=== PATIENT | female | born 1995 | race Caucasian/White ===

== ENCOUNTER 2020-04-04 02:03 | Inpatient (IN) | payer SELFPAY, OTHER ==
[2020-04-04] VITALS (49 sets, daily range): BP systolic 84–121; BP diastolic 41–72; PULSE 73–141; RESP 12–18; TEMP 36.3–37.5; O2SAT 88–99; BMI 26.9
[2020-04-04] MEDS: Lactated Ringers 1,000 ML 999 ML IV (02:45)
[2020-04-04 03:16] LABS: Mucous, Urine 0 SEEN /hpf (<or=2+)
[2020-04-04 03:17] LABS: Absolute Lymphocyte Count 1.62 X10^3/uL (0.83-4.51); Absolute Neutrophil Count 16.8 X10^3/uL (2.0-7.7); Basophil# 0.09 X10^3/uL; Basophil% 0.5 % (0-1); Eosinophil# 0.01 X10^3/uL; Eosinophils% 0.1 % (0-5); Hematocrit 37.4 % (37-47); Hemoglobin 12.3 g/dL (12.0-15.0); Lymphocyte # 1.62 X10^3/ul (4.0); Lymphocyte % 8.2 % (19-41); Mean Corp Hgb Conc 32.9 g/dL (32-36); Mean Corpuscular Hgb 30.4 pg (27.0-32.0); Mean Corpuscular Volume 92.6 fL (81-99); Mean Platelet Vol. 10.6 fl (6.2-12.0); Monocyte# 1.16 X10^3/uL; Monocyte% 5.8 % (0-10); NRBC Flagged by Analyzer 0 % (0-5); Neutrophil # 16.77 X10^3/uL (2.7-7.7); Neutrophil % 84.3 % (47-70); Platelet Count 283 K/mm3 (150-450); RBC Distribution Width CV 13.3 % (11.6-14.6); RBC Distribution Width SD 45.1 fl (35.1-43.9); Red Blood Count 4.04 M/mm3 (4.2-5.4); White Blood Count 19.9 K/mm3 (4.4-11.0)
[2020-04-04 03:19] LABS: Color, Urine Yellow (Yellow); Glucose, Dipstick Normal (Normal); Ketone-Dipstick 50 mg/dl (Negative); Leukocyte Esterase-Dipstick 500 /ul (Negative); Nitrite-Dipstick Negative (Negative); Occult Blood-Urine 25 /ul (Negative); Protein-Dipstick Negative (Negative); Urine Bilirubin Dipstick Negative (Negative); Urine Clarity Clear (Clear); Urine Urobilinogen Normal (Normal); Urine pH 6.5 (5.0 - 8.0)
[2020-04-04 03:26] LABS: Bacteria RARE /hpf (None Seen); Red Blood Cells-Urine 0-5 SEEN /hpf (0-5); Squamous Epithelial Cells - UA 0-5 SEEN /hpf (5-10); White Blood Cells 5-10 SEEN /hpf (0-5)
[2020-04-04 03:29] LABS: Amphetamine Urine VISTA NEGATIVE (<1000 ng/mL); Barbiturate Urine VISTA NEGATIVE (< 200 ng/mL); Benzodiazepine Urine VISTA NEGATIVE (< 200 ng/mL); Cocaine Urine VISTA NEGATIVE (< 300 ng/mL); Ecstacy Urine VISTA NEGATIVE (< 500 ng/mL); Methadone Urine VISTA NEGATIVE (< 300 ng/mL); PCP Urine VISTA NEGATIVE (< 25 ng/mL); THC Urine VISTA NEGATIVE (< 50 ng/mL); Vista UDS pH Range 6
[2020-04-04] MEDS: fentaNYL-bupivacaine (epidural) 100 ML BAG EPIDURAL (04:30)
[2020-04-04] MEDS: Lactated Ringers 500 ML 999 ML IV ×2 (04:40→06:36)
[2020-04-04 04:59] LABS: Chlamydia Trachomatis by PCR Negative (Negative); Neisserai gonorrhoeae by PCR Negative (Negative); Probe Check PASS; Sample Adequacy Control PASS; Specimen Processing Control PASS
[2020-04-04 05:18] LABS: Probe Check PASS; Specimen Processing Control PASS
[2020-04-04] MEDS: Lactated Ringers 1,000 ML 200 ML IV (07:05)
--- NOTE | 2020-04-04 08:26 | HP.PCM_ITS ---
- Problem List (1) Previous delivery affecting Status: Acute (2) Active labor Status: Acute History Date of Admission: 04/04/20 Final ALEAH: 03/29/20 Gestational age: 40 Weeks and 6 Days History of this : This is a 25 year-old, G 2P1, at 40 weeks gestational age presents in active labor for a trial of labor after . Patient was seen by [facility] [place] providers and had a routine and an attempted induction of labor 1 week ago that the patient had a Corado bulb and Pitocin and stalled at 3 cm and therefore was sent home. Patient sought care by [facility] Malia Esposito and has been in labor since Saturday afternoon and is now 4 to 5 cm but stalled out. Patient presents for a trial of labor today to this hospital.. Medical History: Medical History (Last Updated 04/04/20 @ 08:[address] Becyk Roberson MD) delivery delivered O82 Allergies No Known Allergies Allergy (Verified 04/04/20 03:11) Smoking Status: Never smoker Alcohol: None Number of Fetus(es): 1 NST - FHR Rate Baby A Baseline: 140 Variability:: Moderate Accelerations:: 15 x 15 Decelerations:: None NST Reactive:: Yes FHR Category:: Category I Uterine Activity:: irregular History Past Pregnancies: Past Pregnancies pevious stalled at 3 cm for 48 hours Labs: Mom's Microbiology 04/04/20 02:45 Mucosa - Nose SARS-CoV-2 Antigen (Rapid) - Final SARS-CoV-2 (COVID 19) Mom's Labs & Results 04/04/20 04/04/20 04/04/20 02:45 02:45 02:45 WBC 19.9 H RBC 4.04 L Hgb 12.3 Hct 37.4 MCV 92.6 MCH 30.4 MCHC 32.9 RDW Std Deviation 45.1 H RDW Coeff of Kelle 13.3 Plt Count 283 MPV 10.6 Immature Gran % (Auto) 1.100 H Neut % (Auto) 84.3 H Lymph % (Auto) 8.[address] [place] % (Auto) 5.8 Eos % (Auto) 0.1 Baso % (Auto) 0.5 Absolute Neuts (auto) 16.8 H Absolute Lymphs (auto) 1.62 Nucleated RBC % 0 Urine Color Urine Clarity Urine pH Ur Specific [place] Urine Protein Urine Glucose (UA) Urine Ketones Urine Occult Blood Urine Nitrite Urine Bilirubin Urine Urobilinogen Ur Leukocyte Esterase Urine RBC Urine WBC Ur Squamous Epith Cells Urine Bacteria Urine Mucus Urine Opiates Screen Urine Methadone Screen Ur Barbiturates Screen Ur Phencyclidine Scrn Ur Amphetamines Screen U Methamphetamin-MDMA U Benzodiazepines Scrn Urine Cocaine Screen U Cannabinoids Screen Ur Drug Screen Comment RPR Chlam trachomat DNA PCR COVID-19 (JEREMIAH) Hep Bs Antigen Hepatitis C Antibody HIV 1&2 Antibody N.gonorrhoeae DNA (PCR) Rubella IgG Antibody Pending Blood Type O POSITIVE Antibody Screen NEGATIVE 04/04/20 04/04/20 04/04/20 02:45 02:45 03:00 WBC RBC Hgb Hct MCV MCH MCHC RDW Std Deviation RDW Coeff of Kelle Plt Count MPV Immature Gran % (Auto) Neut % (Auto) Lymph % (Auto) [place] % (Auto) Eos % (Auto) Baso % (Auto) Absolute Neuts (auto) Absolute Lymphs (auto) Nucleated RBC % Urine Color Yellow Urine Clarity Clear Urine pH 6.5 Ur Specific [place] 1.010 Urine Protein Negative Urine Glucose (UA) Normal Urine Ketones 50 H Urine Occult Blood 25 H Urine Nitrite Negative Urine Bilirubin Negative Urine Urobilinogen Normal Ur Leukocyte Esterase 500 H Urine RBC 0-5 SEEN Urine WBC 5-10 SEEN Ur Squamous Epith Cells 0-5 SEEN Urine Bacteria RARE Urine Mucus 0 SEEN Urine Opiates Screen Urine Methadone Screen Ur Barbiturates Screen Ur Phencyclidine Scrn Ur Amphetamines Screen U Methamphetamin-MDMA U Benzodiazepines Scrn Urine Cocaine Screen U Cannabinoids Screen Ur Drug Screen Comment RPR Pending Chlam trachomat DNA PCR COVID-19 (JEREMIAH) Hep Bs Antigen Pending Hepatitis C Antibody Pending HIV 1&2 Antibody Pending N.gonorrhoeae DNA (PCR) Rubella IgG Antibody Blood Type Antibody Screen 04/04/20 04/04/20 04/04/20 03:00 03:00 04:15 WBC RBC Hgb Hct MCV MCH MCHC RDW Std Deviation RDW Coeff of Kelle Plt Count MPV Immature Gran % (Auto) Neut % (Auto) Lymph % (Auto) [place] % (Auto) Eos % (Auto) Baso % (Auto) Absolute Neuts (auto) Absolute Lymphs (auto) Nucleated RBC % Urine Color Urine Clarity Urine pH Ur Specific [place] Urine Protein Urine Glucose (UA) Urine Ketones Urine Occult Blood Urine Nitrite Urine Bilirubin Urine Urobilinogen Ur Leukocyte Esterase Urine RBC Urine WBC Ur Squamous Epith Cells Urine Bacteria Urine Mucus Urine Opiates Screen NEGATIVE Urine Methadone Screen NEGATIVE Ur Barbiturates Screen NEGATIVE Ur Phencyclidine Scrn NEGATIVE Ur Amphetamines Screen NEGATIVE U Methamphetamin-MDMA NEGATIVE U Benzodiazepines Scrn NEGATIVE Urine Cocaine Screen NEGATIVE U Cannabinoids Screen NEGATIVE Ur Drug Screen Comment RPR Chlam trachomat DNA PCR Negative COVID-19 (JEREMIAH) Negative Hep Bs Antigen Hepatitis C Antibody HIV 1&2 Antibody N.gonorrhoeae DNA (PCR) Negative Rubella IgG Antibody Blood Type Antibody Screen Course Did the patient receive Yes care? Labs Blood Type: O RH: POSITIVE HbSAg Collected on Admission HIV/AIDS Non-Reactive Group B Strep: Negative Other Lab Procedures/Results/ all lab work collected on admission Comments: Current Obstetrical History Gestational Diabetes No Incompetent Cervix No Infertility No IUGR No Macrosomia No Hypertension/Pre-eclampsia No Placenta Previa/Abruption No PTL/PROM No Uterine anomaly No Oligohydramnios No Polyhydramnios No Multiple gestation No Past Medical History Asthma No Diabetes No Hypertension No Heart disease No Mitral valve prolapse No Neurologic/Seizure disorder/ No Migraines Kidney disease No Liver disease No Varicosities No Clotting disorders/Hx of DVT No Thyroid Dysfunction No Other medical diseases No Psychiatric disorders No Major trauma No Abnormal PAP smear No Sleep apnea No Mammogram in the last 2 years No Social History Marital Status: Alleged father Harshad Hx Smoking No Smoking Status Never smoker Expected Infant Delivery Method: Review of Systems Constitutional: Denies: Fever, Malaise Eyes: Denies: Blurred vision, Vision Change HEENT: Denies: Head Aches, Visual Changes Cardiovascular: Denies: Chest Pain, Palpitations Respiratory: Denies: Cough, Shortness of Breath, Wheezing Gastrointestinal: Denies: Abdominal Pain, Diarrhea, Nausea, Vomiting Genitourinary: Denies: Dysuria, Hematuria Musculoskeletal: Denies: Joint Pain, Muscle pain Skin: Denies: Lesions, Rash Neurological: Denies: Blurred vision, Focal weakness, Headaches Psychiatric: Denies: Anxiety, Depression Endocrine: Denies: Heat/ Cold Intolerance Hematologic/ Lymphatic: Denies: Easy Bruising, Easy Bleeding Physical Exam Vitals: Vital Signs Temp Pulse BP Pulse Ox 97.9 F 95 108/57 L 99 04/04/20 06:52 04/04/20 08:23 04/04/20 08:23 04/04/20 07:19 General: Alert, Cooperative, No apparent distress HEENT: Atraumatic, Normocephalic. Negative for: Thyromegaly, Lymphadenopathy Cardiovascular: Regular rate Lungs: Normal air movement Abdomen: Soft, Non Tender, Gravid Neurological: Deep Tendon Reflexes 2+/4 and Symmetrical, Neuro grossly intact. Negative for: Clonus ART INSTALLER: Normal external genitalia. Negative for: Vulvar lesions Estimated gestational size: Appropriate for gestational size Presentation: Cephalic Assessment/Plan All Active Problems Previous delivery affecting (Acute) Active labor (Acute) This is a 25 year-old, at 40 weeks gestational age presents IAL TOLAC. discussed pitocin and AROM augmentation. will get epidural first.
--- NOTE | 2020-04-04 08:30 | OP.PCM_ITS ---
Problem List (1) Previous delivery affecting Status: Acute (2) Active labor Status: Acute Delivery Classification: KELLIE Final ALEAH: 03/29/20 Gestational age: 40 Weeks and 6 Days chicken raiser: Shital Gorman Type of Anesthesia:: Epidural Special Medications: none Implants Used: none Date of Procedure: 04/04/20 Pre-Operative Diagnosis: tolac, NRFHTS recurrent late decelerations Post-Operative Diagnosis: same plus uterine rupture with window Indications for : Nonreassuring Status Description of Procedure: 25-year-old presented at 40 and 6 after laboring at home with a cast iron drain pipe layer for a day and a half and proceeded to 4-5 cm of dilation. After position changes and after the patient got an epidural she developed recurrent late decelerations that were still intermittent and would not resolve with position changes therefore the decision to proceed with a repeat low transverse was made. The patient was placed in the dorsal supine position with leftward tilt. Patient was prepped and draped in the normal sterile fashion. Pfannenstiel skin incision was made with the scalpel and carried through to the underlying layer of fascia with the scalpel. Fascia was nicked in the midline and the incision extended laterally. The rectus bellies were dissected off superiorly and inferiorly with out complication both sharply and bluntly. The peritoneum was entered digitally. a uterine rupture was seen approximately 2x3 cm in the left VANNESA with peritoneum overlying the area. The incision was s tretched and a low transverse uterine incision was made with the scalpel. The 's head was delivered atraumatically followed by the anterior and posterior shoulders without complication the rest of the delivered. The cord was clamped and cut and the infant was handed off to awaiting nurse. The placenta was delivered spontaneously immediately following and was noted to be intact and have a three-vessel cord. The uterus was exteriorized cleared of all clots and debris, and the incision was closed in a double layer closure using #1 Monocryl. The ovaries and fallopian tubes were noted to be within normal limits. The uterus was returned to the maternal abdomen and gutters were cleared of all clots and debris. The peritoneum was closed with 3-0 Monocryl in a running fashion. Gloves were changed prior to fascial closure. Fascia was closed with 0 PDS in a running fashion. Subcutaneous tissue was copiously irrigated and the skin was closed with 3-0 Monocryl in a subcuticular fashion. Mepilex dressing was applied without complication. Patient was taken to recovery in stable condition. It was discussed with the patient that based on the clinical information obtained during this encounter, combined with her history, at this time I would recommend only cesareans for future deliveries if further pregnancies are desired, and she needs delivered early at 36-37 weeks. Amniotic Membrane Rupture Type: Artificial Amniotic Fluid Description: Clear Placenta Disposition: [facility] Specimen(s) sent to pathology: placenta Drain: Corado to straight drain Fluids Replaced: crystalloid Antibiotic Given: Ancef 2 grams IV x1, Zithromax 500 mg/5 mL X1 Pt instructed on risks of surgery: Bleeding, Anesthesia Risks, Infection, Injury to surrounding structure(s) including bowel and bladder Complications: None - Admit VTE Documentation VTE Present on Admission: No VTE Mechan Device Prophylaxis: SCD's Multi Select Codes - Urinary/Genital Urinary/Genital CPT Codes: 87457 delivery+PP Care([facility])
[2020-04-04] MEDS: Sodium Citrate/Citric Acid 30 ML UDC PO (08:45)
[2020-04-04] MEDS: Cefazolin 2 GM in 0.9% Normal Saline 100 ML IV (08:50)
[2020-04-04 09:41] LABS: Rubella IgG Reactive (Nonreactive)
[2020-04-04] MEDS: Oxytocin 30 units/NS 500 ml 30 UNITS/500 ML IV.SOLN 167 UNITS IV (09:50)
[2020-04-04] MEDS: Lactated Ringers 1,000 ML 100 ML IV (13:14)
[2020-04-04] MEDS: Acetaminophen 500 MG Tablet 1000 MG PO ×2 (14:03→20:39)
[2020-04-04 14:46] LABS: HIV - WCH Non-Reactive (Nonreactive); Hepatitis B Surface Antigen Non-Reactive (Nonreactive); Hepatitis C Antibody Non-Reactive (Nonreactive)
[2020-04-04] MEDS: Ketorolac 30 MG/ML Syringe IV ×2 (15:20→20:39)
[2020-04-04] MEDS: 0.9% Saline Lock 10 ML Syringe IV (20:39)
[2020-04-05] VITALS: BP 89/43; PULSE 65; RESP 15; TEMP 36.3; O2SAT 96
--- NOTE | 2020-04-05 00:11 | NURSING ---
0000- BP low, pt. denies any headache, dizziness, lightheadedness, or other symptoms. BPs throughout the day have been on the lower side. Encouraged to drink PO fluids. This RN will continue to monitor and informed pt. to have RN in room when ambulating. 0010- Pt. out of bed and up to restroom with nurse standby to attempt to void. Tolerated walking well, denies any dizziness or lightheadedness. Almaz-care performed and almaz-pad changed.
[2020-04-05] MEDS: Acetaminophen 500 MG Tablet 1000 MG PO ×4 (01:55→20:42)
[2020-04-05] MEDS: 0.9% Saline Lock 10 ML Syringe IV ×2 (02:57→08:57)
[2020-04-05] MEDS: Ketorolac 30 MG/ML Syringe IV (02:57)
--- NOTE | 2020-04-05 03:26 | NURSING ---
Pt. up to restroom. Reports being able to void a little bit. This RN allowing pt. to sit in restroom for a little while longer to see if she is able to empty her bladder anymore.
[2020-04-05 03:36] VITALS: BP 100/49; PULSE 79; RESP 16; TEMP 36.5; O2SAT 97
[2020-04-05 03:58] LABS: Hematocrit 35.4 % (37-47); Hemoglobin 11.4 g/dL (12.0-15.0); Mean Corp Hgb Conc 32.2 g/dL (32-36); Mean Corpuscular Hgb 30.6 pg (27.0-32.0); Mean Corpuscular Volume 94.9 fL (81-99); Mean Platelet Vol. 10.3 fl (6.2-12.0); Platelet Count 279 K/mm3 (150-450); RBC Distribution Width CV 13.5 % (11.6-14.6); RBC Distribution Width SD 46.9 fl (35.1-43.9); Red Blood Count 3.73 M/mm3 (4.2-5.4); White Blood Count 22.5 K/mm3 (4.4-11.0)
--- NOTE | 2020-04-05 05:06 | NURSING ---
Pt. reports feeling like she needs to void. This RN assisted pt. up to restroom.
--- NOTE | 2020-04-05 07:53 | PCM.PN.OB ---
Patient Problems: Active and Suspected Problems (Last Updated 04/04/20 @ 08:[address] Becky Roberson MD) Previous delivery affecting (Acute) Active labor (Acute) Subjective: Patient doing well without complaints. Tolerating PO. Ambulating and voiding without difficulty. Breast feeding well. Denies chest pain, shortness of breath, calf pain/swelling, fevers, chills, lightheadedness. - Physical Exam Vitals/I&O's: Vital Signs Temp Pulse Resp BP Pulse Ox 97.7 F L 79 16 100/49 L 97 04/05/20 03:36 04/05/20 03:36 04/05/20 03:36 04/05/20 03:36 04/05/20 03:36 Oxygen Flow Rate (L/min) 2 Oxygen Delivery Method Room Air Weight: 152 lb Body Mass Index (BMI) 26.9 Intake and Output for Last 24 Hours 04/03/20 04/04/20 04/05/20 23:59 23:59 23:59 Intake Total 3966.67 / 3966.67 Output Total 350 / 350 500 / 500 Balance 3616.67 / 3616.67 -500 / -500 General: Alert, Oriented x3 Abdomen: Soft, Non-Distended, - - Dressing dry and intact. FF below U. Appropriately tender Microbiology Past 72 Hours 04/04/20 02:45 Mucosa - Nose SARS-CoV-2 Antigen (Rapid) - Final SARS-CoV-2 (COVID 19) Laboratory Results 04/04/20 02:45: Rubella IgG Antibody Reactive 04/04/20 02:45: Hep Bs Antigen Non-Reactive, Hepatitis C Antibody Non-Reactive, HIV 1&2 Antibody Non-Reactive 04/05/20 03:50: WBC 22.5 H, RBC 3.73 L, Hgb 11.4 L, Hct 35.4 L, MCV 94.9, MCH 30.6, MCHC 32.2, RDW Std Deviation 46.9 H, RDW Coeff of Kelle 13.5, Plt Count 279, MPV 10.3 Current Medications Acetaminophen (Acetaminophen 500 Mg Tablet) 1,000 mg PO Q6@0200,0800,1400,2000 NORIS Last Admin: 04/05/20 01:55 Dose: 1,000 mg Documented by: Bisacodyl (Bisacodyl 10 Mg Suppository) 10 mg RECTAL UD PRN PRN Reason: If no BM Diphenhydramine HCl (Diphenhydramine 25 Mg Capsule) 25 mg PO Q6H PRN PRN PRN Reason: ITCHING Stop: 04/05/20 08:41 Hydrocortisone (Hydrocortisone 2.5% Crm) 1 applic TOPICAL TID PRN PRN; Protocol PRN Reason: Discomfort Lactated Ringer's () 1,000 mls @ 100 mls/hr IV .Q10H [facility] Last Admin: 04/05/20 05:11 Dose: Not Given Documented by: Ketorolac Tromethamine (Ketorolac 30 Mg/Ml Syringe) 30 mg IV Q6H [facility] Stop: 04/05/20 09:01 Last Admin: 04/05/20 02:57 Dose: 30 mg Documented by: Methylergonovine Maleate (Methylergonovine 0.2 Mg/Ml Ampul) 0.2 mg IM X1 PRN PRN Reason: Uterine Atony Naloxone HCl (Naloxone 0.4 Mg/Ml Syringe) 0.02 mg IV Q1M PRN PRN Reason: RR <10 and pt unresponsive Naproxen (Naproxen 250 Mg Tablet) 500 mg PO Q8 [facility] Last Admin: 04/05/20 05:11 Dose: Not Given Documented by: Ondansetron HCl (Ondansetron 4 Mg/2 Ml Vial) 4 mg IV Q4H PRN PRN PRN Reason: Nausea Oxycodone HCl (Oxycodone 5 Mg Tablet) 5 - 10 mg PO Q4H PRN PRN PRN Reason: Pain Score 4-10 Prochlorperazine Edisylate (Prochlorperazine 10 Mg/2 Ml Vial) 10 mg IV Q6H PRN PRN PRN Reason: NAUSEA Senna/Docusate Sodium (Senna/Docusate Sodium 1 Tablet) 0 tablet PO DAILY [facility] Last Admin: 04/04/20 11:20 Dose: Not Given Documented by: Simethicone (Simethicone 80 Mg Tablet) 80 mg PO [facility] PRN PRN Reason: Indigestion/stomach pain Sodium Chloride (0.9% Saline Lock 10 Ml Syringe) 5 - 15 ml IV UD PRN PRN Reason: SALINE FLUSH Last Admin: 04/05/20 02:57 Dose: 10 ml Documented by: Medical Necessity - Tobacco Use Smoking Status: Never smoker Assessment/Plan All Active Problems (Last Updated 04/04/20 @ 08:[address] Becky Roberson MD) Previous delivery affecting (Acute) Active labor (Acute) s/p LTCS PPD # 1 1. routine post care 2. breast feeding- support given 3. rh positive 4. rubella immune
[2020-04-05 08:46] VITALS: BP 99/58; PULSE 90; RESP 16; TEMP 36.6; O2SAT 99
[2020-04-05] MEDS: Senna/Docusate Sodium 1 Tablet PO (08:57)
[2020-04-05] MEDS: Naproxen 250 MG Tablet 500 MG PO ×2 (09:19→17:18)
[2020-04-05 13:00] VITALS: BP 100/56; PULSE 85; RESP 16; TEMP 36.5
[2020-04-05 20:35] VITALS: BP 94/52; PULSE 78; RESP 17; TEMP 36.3; O2SAT 97
[2020-04-06] MEDS: Naproxen 250 MG Tablet 500 MG PO ×2 (02:20→09:26)
[2020-04-06] MEDS: Acetaminophen 500 MG Tablet 1000 MG PO ×2 (02:20→09:26)
[2020-04-06 02:21] VITALS: BP 86/51; PULSE 75; RESP 15; TEMP 36.8; O2SAT 97
--- NOTE | 2020-04-06 07:50 | PN.OBGYN_ITS ---
Patient Problems: Active and Suspected Problems (Last Updated 04/04/20 @ 08:[address] Becky Roberson MD) Previous delivery affecting (Acute) Active labor (Acute) Subjective: Patient doing well without complaints. Tolerating PO. Ambulating and voiding without difficulty. Breast feeding well. Denies chest pain, shortness of breath, calf pain/swelling, fevers, chills, lightheadedness. - Physical Exam Vitals/I&O's: Vital Signs Temp Pulse Resp BP Pulse Ox 98.2 F 75 15 86/51 L 97 04/06/20 02:21 04/06/20 02:21 04/06/20 02:21 04/06/20 02:21 04/06/20 02:21 Oxygen Flow Rate (L/min) 2 Oxygen Delivery Method Room Air Weight: 152 lb Body Mass Index (BMI) 26.9 Intake and Output for Last 24 Hours 04/04/20 04/05/20 04/06/20 23:59 23:59 23:59 Intake Total 3966.67 / 3966.67 Output Total 350 / 350 500 / 500 Balance 3616.67 / 3616.67 -500 / -500 General: Alert, Oriented x3 Abdomen: Soft, Non-Distended, - - FF below U. Dressing dry and intact. Appropriately tender Microbiology Past 72 Hours 04/04/20 02:45 Mucosa - Nose SARS-CoV-2 Antigen (Rapid) - Final SARS-CoV-2 (COVID 19) Current Medications Acetaminophen (Acetaminophen 500 Mg Tablet) 1,000 mg PO Q6@0200,0800,1400,2000 [facility] Last Admin: 04/06/20 02:20 Dose: 1,000 mg Documented by: Bisacodyl (Bisacodyl 10 Mg Suppository) 10 mg RECTAL UD PRN PRN Reason: If no BM Hydrocortisone (Hydrocortisone 2.5% Crm) 1 applic TOPICAL TID PRN PRN; Protocol PRN Reason: Discomfort Methylergonovine Maleate (Methylergonovine 0.2 Mg/Ml Ampul) 0.2 mg IM X1 PRN PRN Reason: Uterine Atony Naloxone HCl (Naloxone 0.4 Mg/Ml Syringe) 0.02 mg IV Q1M PRN PRN Reason: RR <10 and pt unresponsive Naproxen (Naproxen 250 Mg Tablet) 500 mg PO Q8H [facility] Last Admin: 04/06/20 02:20 Dose: 500 mg Documented by: Ondansetron HCl (Ondansetron 4 Mg/2 Ml Vial) 4 mg IV Q4H PRN PRN PRN Reason: Nausea Oxycodone HCl (Oxycodone 5 Mg Tablet) 5 - 10 mg PO Q4H PRN PRN PRN Reason: Pain Score 4-10 Prochlorperazine Edisylate (Prochlorperazine 10 Mg/2 Ml Vial) 10 mg IV Q6H PRN PRN PRN Reason: NAUSEA Senna/Docusate Sodium (Senna/Docusate Sodium 1 Tablet) 0 tablet PO DAILY [facility] Last Admin: 04/05/20 08:57 Dose: 1 tablet Documented by: Simethicone (Simethicone 80 Mg Tablet) 80 mg PO [facility] PRN PRN Reason: Indigestion/stomach pain Medical Necessity - Tobacco Use Smoking Status: Never smoker Assessment/Plan All Active Problems (Last Updated 04/04/20 @ 08:[address] Becky Roberson MD) Previous delivery affecting (Acute) Active labor (Acute) s/p LTCS PPD # 2 1. routine post care 2. breast feeding- support given 3. rh positive 4. rubella immune 5. home today
--- NOTE | 2020-04-06 07:52 | DCINST_ITS ---
Additional Instructions: If you experience any of the following, contact your healthcare provider. * Bleeding that soaks a pad every hour for 2 hours * Fever 100.4 or higher * Unrelieved incision or abdominal pain * Swelling, redness, discharge or bleeding from your incision or episiotomy site * Your incision begins to separate * Problems urinating (including inability to urinate or burning while urinating). * Visual changes * Severe headache * Flu-like symptoms * Pain or redness in one of both of your breasts * Pain, warmth, tenderness or swelling in your legs, especially the calf area * Frequent nausea and vomiting * Symptoms of depression or anxiety If you experience any of the following, call 911 or go to the nearest Emergency Room. * Chest pain * Problems breathing * Seizure activity * Partial or complete paralysis of a body part, slurred speech, weakness or drooping of the face, or a sudden inability to walk or hold your balance Allergies/Adverse Reactions: Allergies No Known Allergies Allergy (Verified 04/04/20 03:11) Medications to take at Discharge Naproxen [Naprosyn] 500 mg PO BID PRN PRN #60 tab 04/04/20 Oxycodone HCl/Acetaminophen [Percocet 5/325] 1 - 2 tab PO Q4H PRN PRN 3 Days #15 tab 04/04/20 The following prescriptions were given: Naproxen [Naprosyn] 500 mg PO BID PRN PRN #60 tab PRN Reason: Pain Transmission Status: Received by [facility] Oxycodone HCl/Acetaminophen [Percocet 5/325] 1 - 2 tab PO Q4H PRN PRN 3 Days #15 tab PRN Reason: Pain Transmission Status: Received by [facility] Follow-Up: Call to make an appointment with your doctor for an incision check in 1-2 weeks. You will also need a 6 week post- follow up appointment. Test results from this visit will be discussed in further detail at your follow- up appointment, if applicable. Primary Care Physician: Care Physician,No Primary [Primary Care Provider] -
--- NOTE | 2020-04-06 07:52 | PCM.DCCSEC ---
Additional Instructions: If you experience any of the following, contact your healthcare provider. Bleeding that soaks a pad every hour for 2 hours Fever 100.4 or higher Unrelieved incision or abdominal pain Swelling, redness, discharge or bleeding from your incision or episiotomy site Your incision begins to separate Problems urinating (including inability to urinate or burning while urinating). Visual changes Severe headache Flu-like symptoms Pain or redness in one of both of your breasts Pain, warmth, tenderness or swelling in your legs, especially the calf area Frequent nausea and vomiting Symptoms of depression or anxiety If you experience any of the following, call 911 or go to the nearest Emergency Room. Chest pain Problems breathing Seizure activity Partial or complete paralysis of a body part, slurred speech, weakness or drooping of the face, or a sudden inability to walk or hold your balance Allergies/Adverse Reactions: Allergies No Known Allergies Allergy (Verified 04/04/20 03:11) Medications to take at Discharge Naproxen [Naprosyn] 500 mg PO BID PRN PRN #60 tab 04/04/20 Oxycodone HCl/Acetaminophen [Percocet 5/325] 1 - 2 tab PO Q4H PRN PRN 3 Days #15 tab 04/04/20 The following prescriptions were given: Naproxen [Naprosyn] 500 mg PO BID PRN PRN #60 tab PRN Reason: Pain Transmission Status: Received by [facility] Oxycodone HCl/Acetaminophen [Percocet 5/325] 1 - 2 tab PO Q4H PRN PRN 3 Days #15 tab PRN Reason: Pain Transmission Status: Received by [facility] Follow-Up: Call to make an appointment with your doctor for an incision check in 1-2 weeks. You will also need a 6 week post- follow up appointment. Test results from this visit will be discussed in further detail at your follow-up appointment, if applicable. Primary Care Physician: Care Physician,No Primary [Primary Care Provider] -
[2020-04-06 09:20] VITALS: BP 96/43; PULSE 95; RESP 14; TEMP 36.6
[2020-04-06] MEDS: Senna/Docusate Sodium 1 Tablet PO (09:26)
[2020-04-07 02:51] LABS: Rapid Plasmin Reagin (RPR) NONREACTIVE (NONREACTIVE)
== END 2020-04-06 11:55 | disposition home or self-care (01) | DRG 788 ==
LOC: OBT 02:06 → WP 02:06
PROVIDERS: Admitting Provider Obstetrics & Gynecology; Referring Provider Obstetrics & Gynecology; Visit Provider Obstetrics & Gynecology
DX: O76 Abnormality in fetal heart rate and rhythm complicating labor and delivery (principal); O34.219 Maternal care for unspecified type scar from previous cesarean delivery; Z3A.40 40 weeks gestation of pregnancy; Z37.0 Single live birth
CPT/HCPCS: 59025; 59050; 80307; 81001; 85025; 85027; 86592; 86703; 86762; 86803; 86850; 86900; 86901; 87340; 87426; 87491; 87591; 87635; 99218; J7120; A4216; G0378; J2405; U0002

== ENCOUNTER → 2020-05-27 | Outpatient (CLI) | payer OTHER, SELFPAY ==
[2020-05-27 13:27] VITALS: BMI 24.7
[2020-06-01 13:55] LABS: HPV APTIMA, High Risk Negative (Negative)
== END | disposition home or self-care (01) ==
LOC: LABSPEC 16:35
PROVIDERS: Referring Provider Obstetrics & Gynecology; Visit Provider Obstetrics & Gynecology
DX: Z12.4 Encounter for screening for malignant neoplasm of cervix (principal)
CPT/HCPCS: 87624; 88175; G0145

== ENCOUNTER 2022-03-16 03:10 | Emergency (ER) | payer OTHER, SELFPAY ==
[2022-03-16 03:14] VITALS: BP 107/67; PULSE 76; RESP 18; TEMP 36.4; O2SAT 98; BMI 26.7
--- NOTE | 2022-03-16 03:51 | CT_ITS ---
STUDY: CT BRAIN WITHOUT CONTRAST REASON FOR EXAM: Female, 27 years old. headache RADIATION DOSAGE (If Supplied By Facility): CTDIvol = ( 44.99 ) mGy, DLP = ( 829.85 ) mGycm TECHNIQUE: Transaxial CT imaging of the brain was performed without administration of intravenous contrast material. Individualized dose optimization techniques were used for this CT. COMPARISON: No relevant priors. FINDINGS: Normal soft tissue structures. Normal calvarium. Normal size ventricles and extra-axial spaces for the patient''s age. Normal white matter tracts of the cerebral hemispheres. Normal basal ganglia and thalami. Normal brainstem. Normal cerebellum. There is no intracranial hemorrhage. There are no findings of an acute ischemic infarction. Normal visualized paranasal sinuses. CT/Brain/Head without Contrast IMPRESSION: Normal unenhanced CT scan of the brain. Electronically Signed: Emely Aggarwal MD at 4:34 EDT ,
[2022-03-16 04:01] LABS: Absolute Lymphocyte Count 0.42 X10^3/uL (0.83-4.51); Absolute Neutrophil Count 2.7 X10^3/uL (2.0-7.7); Basophil# 0.03 X10^3/uL; Basophil% 0.8 % (0-1); Eosinophils% 2.6 % (0-5); Hematocrit 36.9 % (37-47); Hemoglobin 12.4 g/dL (12.0-15.0); Lymphocyte # 0.42 X10^3/ul (0.83-4.51); Lymphocyte % 10.7 % (19-41); Mean Corp Hgb Conc 33.6 g/dL (32-36); Mean Corpuscular Hgb 29.2 pg (27.0-32.0); Mean Corpuscular Volume 86.8 fL (81-99); Mean Platelet Vol. 10.4 fl (6.2-12.0); Monocyte# 0.63 X10^3/uL; Monocyte% 16.1 % (0-10); NRBC Flagged by Analyzer 0 % (0-5); Neutrophil # 2.72 X10^3/uL (2.7-7.7); Neutrophil % 69.3 % (47-70); POSITIVE DIFFERENTIAL YES; Platelet Count 243 K/mm3 (150-450); RBC Distribution Width CV 12.9 % (11.6-14.6); RBC Distribution Width SD 40.9 fl (35.1-43.9); Red Blood Count 4.25 M/mm3 (4.2-5.4); White Blood Count 3.9 K/mm3 (4.4-11.0)
[2022-03-16 04:11] LABS: Anion Gap 7 (5-15); BUN 11 mg/dL (7-18); Calcium,Total 8.8 mg/dL (8.5-10.1); Chloride 103 mmol/L (98-107); Creatinine, Serum 0.73 mg/dL (0.55-1.02); EST Glomerular Filtration Rate 101 mL/min (>60); Est Glom Filt Rate - Afr Amer 122 mL/min (>60); Estimated Creatinine Clearance 94.91 ml/min; Glucose 129 mg/dL (74-106); Potassium 3.4 mmol/L (3.5-5.1); Sodium Level 135 mmol/L (136-145)
[2022-03-16 04:15] LABS: Differential Comment SCANNED; Differential Indicated SCAN CRITERIA MET
[2022-03-16 04:29] LABS: Color, Urine Yellow (Yellow); Glucose, Dipstick Normal (Normal); Ketone-Dipstick Negative (Negative); Leukocyte Esterase-Dipstick Negative /ul (Negative); Mucous, Urine 0 SEEN /hpf (<or=2+); Nitrite-Dipstick Negative (Negative); Occult Blood-Urine 250 /ul (Negative); Protein-Dipstick Negative (Negative); Specific Gravity, Urine 1.015 (1.002-1.030); Squamous Epithelial Cells - UA 0 SEEN /hpf (5-10); Urine Bilirubin Dipstick Negative (Negative); Urine Clarity Clear (Clear); Urine Urobilinogen Normal (Normal)
[2022-03-16 04:33] LABS: Internal QC Validated? YES +Cl - CLEAR BKGD; Pregnancy, Urine Negative Negative
[2022-03-16] MEDS: DiphenhydrAMINE 50 MG/ML Syringe 25 MG IV (04:33)
[2022-03-16] MEDS: proCHLORPERazine 10 MG/2 ML Vial IV (04:35)
[2022-03-16 04:36] LABS: Red Blood Cells-Urine 10-25 SEEN /hpf (0-5); White Blood Cells 0-5 SEEN /hpf (0-5)
[2022-03-16 04:37] LABS: Bacteria RARE /hpf (None Seen)
[2022-03-16] MEDS: Ketorolac 15 MG/ML Vial IV (04:50)
--- NOTE | 2022-03-16 06:15 | EX.ED.VIS.HA ---
HPI History of Present Illness Chief Complaint: Headache Informant: patient Narrative Narrative: Patient is a 27-year-old female presenting with headache. Patient developed headache 2 evenings ago around suppertime. She states it is diffuse and has been worsening. She now feels like her head is going split open. She had episode of vomiting on the way here and has some associated photophobia. Took Motrin at 2 AM. Does have some chronic low back pain but that is unchanged. Has had nausea but no change in her bowel movements. No abdominal pain. No recent upper respiratory symptoms. No fever but does report chills and feeling hot and cold. No cough, chest pain or shortness of breath. She is currently on her menstrual cycle. Denies any associated neck stiffness. No difficulty swallowing. No other complaints at this time. [facility] Medical History (Updated 03/16/22 @ 06:[address] Samaria Hernandez DO) delivery delivered Home Medications NK 03/16/22 [History Last Taken Unknown] Allergy/AdvReac Type Severity Reaction Status Date / Time No Known Allergies Allergy Verified 03/16/22 03:12 Surgical History History of tonsillectomy Status post repeat low transverse section Social History household members: spouse and children number of children: 2 current occupation: [employer] history of recent travel: No sexually active: Yes Smoking Status: Never smoker alcohol intake: never substance use type: does not use what type of physical activity do you participate in: none seatbelt use: sometimes do you feel safe at home: Yes additional social history: - Harshad ROS ROS ED Constitutional Constitutional ED: Reports chills; Denies fever(s) Eyes Eyes: Reports other Details: Photophobia ; Denies blurry vision or change in vision ENT ENT ED: Denies rhinorrhea or sore throat Cardiovascular Cardiovascular: Denies chest pain or palpitations Respiratory/Chest Respiratory/Chest: Denies cough Gastrointestinal Gastrointestinal: Reports nausea and vomiting; Denies abdominal pain, constipation or diarrhea Genitourinary Genitourinary ED: Reports LMP (females 10-50) Details: Comment: (03/15/2022); Denies dysuria or hematuria Musculoskeletal Musculoskeletal: Reports back pain; Denies arthralgias, myalgias or neck pain Integumentary Denies rash Neurologic Neurologic: Reports headache(s); Denies paresthesias or weakness Psychiatric Psychiatric: Denies anxiety Hematologic/Lymphatic Hematologic/Lymphatic: Denies easy bleeding or easy bruising EXAM Physical Exam Const Vital Signs: 03/16/22 03:14 Temperature 97.6 F L Temperature Source Oral Pulse Rate 76 Respiratory Rate 18 Blood Pressure 107/67 Blood Pressure Mean 80 Pulse Ox 98 Oxygen Delivery Method Room Air Positive well nourished and well developed General Appearance ED: well developed and NAD HEENT Reports normocephalic, TM's clear and moist mucous membranes Tympanic Membrane ED: Yes TM's clear Eyes PERRL and EOMs intact bilaterally Neck no lymphadenopathy, supple and no meningeal signs Resp normal respiratory effort and clear to auscultation bilaterally Cardio regular rate, regular rhythm and no murmurs GI non-tender and non-distended Auscultation: normoactive bowel sounds Extremity normal to inspection and full ROM Neuro oriented x3, CN's II-XII intact bilaterally and no sensory deficits noted Sensorium / Orientation: awake and alert Speech: speech normal Gait (Neuro): normal gait Motor Exam: strength 5/5 throughout; Negative for general weakness Psych mental status grossly normal Skin Lesions: no lesions Rashes: no rashes MDM MDM MDM Narrative Medical decision making narrative: Patient is evaluated for worsening headache. She has associated photophobia and vomiting. Does not have a significant history of migraines. Has a normal neurologic exam. No meningeal signs. No rash. CT of the brain obtained which does not show any acute process. Patient's lab work does show mild leukopenia and I question if she has a viral illness is causing her headache. She is not ill-appearing and has no fever. Urinalysis does show red blood cells however I suspect this is menstrual contamination. Patient is given IV Compazine and Benadryl as well as IV fluids. She is given IV Toradol after head CT is negative. On repeat evaluation she has improvement of her symptoms. Will be discharged home. Given that she does not have any fever or nuchal rigidity I do not think this is meningitis and I do not think an LP is indicated at this time. Patient and are agreeable with this. Patient will be discharged home with return precautions. They verbalized agreement understand this plan Lab Data Labs: Laboratory Results - last 24 hr 03/16/22 03/16/22 03/16/22 03:25 03:25 04:23 WBC 3.9 L RBC 4.25 Hgb 12.4 Hct 36.9 L MCV 86.8 MCH 29.2 MCHC 33.6 RDW Std Deviation 40.9 RDW Coeff of Kelle 12.9 Plt Count 243 MPV 10.4 Immature Gran % (Auto) 0.500 Neut % (Auto) 69.3 Lymph % (Auto) 10.7 L [place] % (Auto) 16.1 H Eos % (Auto) 2.6 Baso % (Auto) 0.8 Absolute Neuts (auto) 2.7 Absolute Lymphs (auto) 0.42 L Nucleated RBC % 0 Differential Comment SCANNED Diff Path Review May foll Sodium 135 L Potassium 3.4 L Chloride 103 Carbon Dioxide 25.0 Anion Gap 7 BUN 11 Creatinine 0.73 Estim Creat Clear Calc 94.91 Est GFR (MDRD) Af Amer 122 Est GFR (MDRD) Non-Af 101 BUN/Creatinine Ratio 15.0 Glucose 129 H Calcium 8.8 Urine Color Yellow Urine Clarity Clear Urine pH 8.0 Ur Specific [place] 1.015 Urine Protein Negative Urine Glucose (UA) Normal Urine Ketones Negative Urine Occult Blood 250 H Urine Nitrite Negative Urine Bilirubin Negative Urine Urobilinogen Normal Ur Leukocyte Esterase Negative Urine RBC 10-25 SEEN Urine WBC 0-5 SEEN Ur Squamous Epith Cells 0 SEEN Urine Bacteria RARE Urine Mucus 0 SEEN Urine Test Negative Radiography Diagnostic Testing: Clinical Impression(s) from Imaging Studies Brain CT 03/16/22 03:51 IMPRESSION: Normal unenhanced CT scan of the brain. Electronically Signed: Emely Aggarwal MD at 4:34 EDT Reading Location ID and State: [facility] / ID Tel , Service support , Discharge Plan Triage Chief Complaint: Headache ED Provider: Samaria Hernandez Dx/Rx/DC Orders Clinical Impression: Headache, Photophobia Instructions: ED, Migraine (Classical) Prescriptions: No Action NK Primary Care Provider: Duane Esposito Referrals: Duane Esposito MD [Primary Care Provider] - Disposition Disposition: Home, Self Care
[2022-03-16 06:54] VITALS: BP 126/86; PULSE 76; RESP 16; O2SAT 98
[2022-03-19 09:38] LABS: Pathologist Review Reviewed
== END 2022-03-16 07:30 | disposition home or self-care (01) ==
PROVIDERS: Emergency Provider Emergency Medicine; PCP Family Medicine; Visit Provider Emergency Medicine
DX: R51.9 Headache, unspecified (principal)
CPT/HCPCS: 70450; 80048; 81001; 81025; 85025; 87811; 96374; 96375; 99282; J7030; A4216

== ENCOUNTER → 2022-06-25 | Outpatient (CLI) | payer SELFPAY, OTHER ==
[2022-06-25 16:25] LABS: Absolute Lymphocyte Count 2.34 X10^3/uL (0.83-4.51); Absolute Neutrophil Count 8.5 X10^3/uL (2.0-7.7); Basophil# 0.05 X10^3/uL; Basophil% 0.4 % (0-1); Eosinophil# 0.05 X10^3/uL; Eosinophils% 0.4 % (0-5); Hematocrit 38.5 % (37-47); Hemoglobin 12.9 g/dL (12.0-15.0); Lymphocyte # 2.34 X10^3/ul (0.83-4.51); Lymphocyte % 20.1 % (19-41); Mean Corp Hgb Conc 33.5 g/dL (32-36); Mean Corpuscular Hgb 29.1 pg (27.0-32.0); Mean Corpuscular Volume 86.7 fL (81-99); Mean Platelet Vol. 10.5 fl (6.2-12.0); Monocyte# 0.61 X10^3/uL; Monocyte% 5.2 % (0-10); NRBC Flagged by Analyzer 0 % (0-5); Neutrophil # 8.53 X10^3/uL (2.7-7.7); Neutrophil % 73.5 % (47-70); Platelet Count 321 K/mm3 (150-450); RBC Distribution Width CV 13.2 % (11.6-14.6); Red Blood Count 4.44 M/mm3 (4.2-5.4); White Blood Count 11.6 K/mm3 (4.4-11.0)
[2022-06-25 17:01] LABS: NATERA MAILED SPECIMEN
[2022-06-25 18:10] LABS: HIV - WCH Non-Reactive (Nonreactive); Hepatitis B Surface Antigen Non-Reactive (Nonreactive); Hepatitis C Antibody Non-Reactive (Nonreactive); Rubella IgG Reactive (Nonreactive); Syphilis Antibodies Non-reactive
[2022-06-28 04:07] LABS: Chlamydia By Nucleic Acid AMP Negative (Negative)
[2022-06-28 20:03] LABS: Gonococcus By Nucleic Acid AMP Negative (Negative)
== END | disposition home or self-care (01) ==
PROVIDERS: PCP Family Medicine; Referring Provider Obstetrics & Gynecology; Visit Provider Obstetrics & Gynecology
DX: Z34.81 Encounter for supervision of other normal pregnancy, first trimester (principal)
CPT/HCPCS: 36415; 85025; 86703; 86762; 86780; 86803; 86850; 86900; 86901; 87086; 87340; 87491; 87591

== ENCOUNTER → 2022-09-03 | Outpatient (CLI) | payer SELFPAY, OTHER ==
--- NOTE | 2022-09-03 12:19 | US_ITS ---
STUDY: SECOND AND THIRD TRIMESTER OBSTETRICAL ULTRASOUND REASON FOR EXAM: Female, 27 years old normal anatomy scan LMP: April 14, 2022. TECHNIQUE: Transabdominal and Transvaginal TECHNICAL QUALITY: Adequate. PRIOR ULTRASOUND: None. FINDINGS: There is a single intrauterine fetus. The fetus is in a cephalic presentation. There is demonstrated cardiac activity with a heart rate of 150 bpm. There is a normal amniotic fluid volume. The largest amniotic fluid pocket measures 3.1 cm x 6.9 cm. The amniotic fluid index (LUISA) is within normal limits. The placenta is posterior in location and is not low lying. There are Grade 0 placental changes. The cervix measures 5 cm in length. The bilateral adnexal regions are normal. BIOMETRY: BPD: 4.92 cm: 20 weeks, 6 days HC: 18.23 cm: 20 weeks, 4 days AC: 15.38 cm: 20 weeks, 4 days FL: 3.29 cm: 20 weeks, 2 days CI: 80.8% FL/BPD: 66.8% FL/HC: FL/AC: 21.4% HC/AC: 1.18 age by current US: 20 weeks, 3 days. ALEAH by current US: January 18, 2023. Estimated weight: 359 grams, +/- 54 grams, 57.2 %. Age by LMP: 20 weeks, 2 days. ALEAH by LMP: January 19, 2023. ANATOMY: Gender: Male Cranium: Normal lateral ventricles. Normal choroid plexus. Normal cerebellum. Normal cisterna magna. Normal face, nose and lips. Chest: Normal 4-chamber heart. Abdomen/Pelvis: Normal diaphragm. Normal stomach. Normal abdominal wall. Normal cord insertion. Normal 3 vessel cord. Normal kidneys. Normal bladder. Spine: Normal cervical spine. Normal thoracic spine. Normal lumbar spine. Normal sacrum. Extremities: Normal bilateral upper extremities. Normal bilateral lower extremities. IMPRESSION: Single live intrauterine gestation with a mean gestational age of 20 weeks and 3 days. Electronically Signed: Jaison Kaplan MD at 15:20 EDT , STUDY: FIRST TRIMESTER OBSTETRICAL ULTRASOUND REASON FOR EXAM: Female, 27 years old. Cervical length. LMP: April 14, 2022. TECHNIQUE: Transvaginal TECHNICAL QUALITY: Adequate. PRIOR ULTRASOUND: None. FINDINGS: Cervical length measures 5.2 cm. US/OB Anatomy w/ Transvaginal IMPRESSION: Cervical length measures 5.2 cm. Electronically Signed: Jaison Kaplan MD at 15:21 EDT ,
== END | disposition home or self-care (01) ==
PROVIDERS: PCP Family Medicine; Referring Provider Registered Nurse; Visit Provider Registered Nurse
DX: Z34.90 Encounter for supervision of normal pregnancy, unspecified, unspecified trimester (principal)
CPT/HCPCS: 76805; 76817

== ENCOUNTER → 2022-11-01 | Outpatient (CLI) | payer SELFPAY, OTHER ==
[2022-11-01 13:38] LABS: Absolute Lymphocyte Count 1.63 X10^3/uL (0.83-4.51); Basophil# 0.04 X10^3/uL; Basophil% 0.3 % (0-1); Eosinophil# 0.05 X10^3/uL; Eosinophils% 0.4 % (0-5); Hemoglobin 12.1 g/dL (12.0-15.0); Lymphocyte # 1.63 X10^3/ul (0.83-4.51); Lymphocyte % 12.1 % (19-41); Mean Corp Hgb Conc 34.6 g/dL (32-36); Mean Corpuscular Hgb 31.2 pg (27.0-32.0); Mean Corpuscular Volume 90.2 fL (81-99); Mean Platelet Vol. 10.3 fl (6.2-12.0); Monocyte% 4.4 % (0-10); NRBC Flagged by Analyzer 0 % (0-5); Neutrophil # 11.01 X10^3/uL (2.7-7.7); Neutrophil % 81.5 % (47-70); Platelet Count 263 K/mm3 (150-450); RBC Distribution Width CV 13.3 % (11.6-14.6); RBC Distribution Width SD 43.6 fl (35.1-43.9); Red Blood Count 3.88 M/mm3 (4.2-5.4); White Blood Count 13.5 K/mm3 (4.4-11.0)
[2022-11-01 14:15] LABS: Glucose Challenge Gest 1H 50g 176 mg/dL (70-140); T4 Free Direct 0.93 ng/dL (0.76-1.46); Thyroid Stim Hormone (TSH) 1.16 uIU/mL (0.358-3.74)
[2022-11-01 14:37] LABS: HIV - WCH Non-Reactive (Nonreactive); Syphilis Antibodies Non-reactive
== END | disposition home or self-care (01) ==
LOC: PAVLAB 13:16
PROVIDERS: Obstetrics & Gynecology; PCP Family Medicine; Referring Provider Obstetrics & Gynecology; Visit Provider Obstetrics & Gynecology
DX: Z13.1 Encounter for screening for diabetes mellitus (principal); Z3A.20 20 weeks gestation of pregnancy; E07.9 Disorder of thyroid, unspecified
CPT/HCPCS: 36415; 82950; 84439; 84443; 85025; 86703; 86780

== ENCOUNTER → 2022-11-07 | Outpatient (CLI) | payer OTHER, SELFPAY ==
[2022-11-07 07:40] LABS: Glucose GTT-Gestation. Fasting 79 mg/dL (<105)
[2022-11-07 08:26] LABS: Glucose GTT-Gestational 1 Hr 209 mg/dL (<190)
[2022-11-07 09:49] LABS: Glucose GTT-Gestational 2 Hr 159 mg/dL (<165)
[2022-11-07 11:26] LABS: Glucose GTT-Gestational 3 Hr 110 L (<145)
== END | disposition home or self-care (01) ==
LOC: LAB 06:39
PROVIDERS: PCP Nurse Practitioner Family; Referring Provider Obstetrics & Gynecology; Visit Provider Obstetrics & Gynecology
DX: Z13.1 Encounter for screening for diabetes mellitus (principal)
CPT/HCPCS: 36415; 82951; 82952

== ENCOUNTER 2022-12-13 09:19 | Outpatient (CLI) | payer OTHER, SELFPAY ==
[2022-12-13] MEDS: Betamethasone/Betamethasone 30 MG/5 ML Vial 12 MG IM (10:14)
[2022-12-13 10:16] VITALS: BP 108/71; PULSE 83; PULSE 97; O2SAT 97
== END 2022-12-13 10:20 | disposition home or self-care (01) ==
LOC: WPOUT 09:33 → WP 09:36
PROVIDERS: PCP Nurse Practitioner Family; Referring Provider Obstetrics & Gynecology; Visit Provider Obstetrics & Gynecology
DX: O47.9 False labor, unspecified (principal)
CPT/HCPCS: 96372; J0702

== ENCOUNTER 2022-12-14 09:39 | Outpatient (CLI) | payer OTHER, SELFPAY ==
[2022-12-14 09:46] VITALS: BMI 29.7
[2022-12-14 09:53] VITALS: BP 110/63; PULSE 88; TEMP 36.8
[2022-12-14] MEDS: Betamethasone/Betamethasone 30 MG/5 ML Vial 12 MG IM (10:15)
--- NOTE | 2022-12-21 16:11 | PCM.PN.BLA ---
Progress Note patient presents to L&D for a celestone injection only. She denies complaints. 12.5 mg of celestone ordered for nursing staff to give and then dc to home. Assessment & Plan Assessment/Plan (1) Gestational diabetes mellitus (GDM) affecting : (2) Abnormal glucose affecting : (3) History of rupture of uterus: (4) Previous delivery affecting : (5) Thyroid condition: (6) Supervision of high risk , antepartum: (7) : QUALIFIERS: Weeks of gestation: 35 weeks Qualified Code(s): Z3A.35 - 35 weeks gestation of
== END 2022-12-14 10:20 | disposition home or self-care (01) ==
LOC: WPOUT 09:41 → WP 09:42
PROVIDERS: PCP Nurse Practitioner Family; Referring Provider Obstetrics & Gynecology; Visit Provider Obstetrics & Gynecology
DX: O24.419 Gestational diabetes mellitus in pregnancy, unspecified control (principal); Z3A.35 35 weeks gestation of pregnancy; O34.219 Maternal care for unspecified type scar from previous cesarean delivery; O99.283 Endocrine, nutritional and metabolic diseases complicating pregnancy, third trimester; E07.9 Disorder of thyroid, unspecified
CPT/HCPCS: 96372; J0702

== ENCOUNTER → 2022-12-21 | Outpatient (CLI) | payer OTHER, SELFPAY | END | disposition home or self-care (01) | LOC: LABSPEC 10:37 | PROVIDERS: PCP Nurse Practitioner Family; Referring Provider Obstetrics & Gynecology; Visit Provider Obstetrics & Gynecology | DX: O09.90 Supervision of high risk pregnancy, unspecified, unspecified trimester (principal); Z3A.00 Weeks of gestation of pregnancy not specified | CPT/HCPCS: 87081 ==

== ENCOUNTER 2022-12-28 10:00 | Inpatient (IN) | payer SELFPAY, OTHER ==
[2022-12-28] VITALS (19 sets, daily range): BP systolic 95–119; BP diastolic 56–75; PULSE 72–97; RESP 12–20; TEMP 36.2–36.8; O2SAT 94–100; BMI 29.0
--- NOTE | 2022-12-28 07:42 | HP.PCM.OB_ITS ---
HPI - General General Date of Admission: 12/28/22 HPI Narrative VAN FAM, is a 27 Y/o @ 36 weeks 6 days who presents to L&D for repeat section. She is being delivered early for history of previous uterine rupture at 39 weeks. She has received 2 doses of celestone in her 35th week. Maternal Data Information ALEAH Calculator Estimated Delivery Date Method Current WG Current Estimate 01/19/23 LMP (Certain) 36w 6d PFSH PFSH Medical History Active labor delivery delivered Home Medications multivit-min no.71-iron fum 28 mg-folate no.1 1 mg-dha 300 mg capsule (PNV- [place]) cap PO DAILY 06/22/22 [History Last Taken 12/14/22 07:30 1 cap] blood sugar diagnostic (Blood Glucose Test strips) #100 ea 11/08/22 [Rx Last Taken Unknown] blood-glucose meter #1 ea 11/08/22 [Rx Last Taken Unknown] lancets #100 ea 11/08/22 [Rx Last Taken Unknown] Allergy/AdvReac Type Severity Reaction Status Date / Time No Known Allergies Allergy Verified 12/21/22 08:35 Family History Sister Delivery outcome of stillborn Family history of recurrent miscarriage 6 miscarriages Surgical History History of tonsillectomy Previous delivery affecting Status post repeat low transverse section Social History adopted: No household members: spouse and children number of children: 2 current occupational status: unemployed current occupation: [employer] pets and animals: No history of recent travel: No sexually active: Yes Smoking Status: Never smoker alcohol intake: never substance use type: does not use well-balanced diet: daily or most days caffeine: No eating out: rarely or never during the past year weight has: remained stable what type of physical activity do you participate in: none cholo/cheondoism: Sikhism seatbelt use: sometimes do you feel safe at home: Yes 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 Date Name GA/Weeks Outcome Route Bth Weight Gen Labor Lgth Anesthesia Del Locatn Provider FOB 06/09/18 John live - full term 04/04/20 Ladi live - full term Visit Details Expected Delivery Route/Plan RLTCS Plans Covid status: declines Flu vaccine: declines Tdap vaccine: declines Rhogam: na LARC form signed: [] Problem list reviewed and updated with the most current plan of care details and appropriate orders placed. Relevant counseling for the gestational age provided. Continue routine care and follow up unless otherwise noted in visit notes/problem list details OB Flowsheet Initial Weight: 149 lb Date -?-?-?-?-?-?-?-?-?-?-?-?- EGA Weight BP Urine Prot -?-?-?-?-?-?-?-?-?-?-?-?- Glucose FHR FuHt Pres Dilation -?-?-?-?-?-?-?-?-?-?-?-?- Effaced St Visit Note 06/25/22 -?-?-?-?-?-?-?-?-?-?-?-?- 10w 2d 149 lb (+0 oz) 115/73 -?-?-?-?-?-?-?--?-?-?-?-?- 170 -?-?-?-?-?-?-?-?-?-?-?-?- SM- CRL 3.7 cm c ons with LMP 07/24/22 -?-?-?-?-?-?-?-?-?-?-?-?- 14w 3d 148 lb (-16 oz) 100/68 Negative -?-?-?-?-?-?-?-?-?-?-?-?- Negative 160 -?-?-?-?-?-?-?-?-?-?-?-?- LC- feeling bett er. no vb/cramping. added TSH/T4 levels. anatomy ordered. 09/03/22 -?-?-?-?-?-?-?-?-?-?-?-?- 20w 2d 149 lb 8 oz (+8 oz) 119/73 Negative -?-?-?-?-?-?-?-?-?-?-?-?- Negative 156 20 -?-?-?-?-?-?-?-?-?-?-?-?- LC- anatomy comp leted. no concerns. +kicks. no vb/cramping. 10/11/22 -?-?-?-?-?-?-?-?-?-?-?-?- 25w 5d 159 lb (+10 lb) 102/68 -?-?-?-?-?-?-?-?-?-?-?-?- 154 25 -?-?-?-?-?-?-?-?-?-?-?-?- LC- doing well. no vb/ctx/lof. good fm. 28 week labs ordered. 11/01/22 -?-?-?-?-?-?-?-?-?-?-?-?- 28w 5d 162 lb (+13 lb) 108/69 Negative -?-?-?-?-?-?-?-?-?-?-?-?- Negative 155 29 -?-?-?-?-?-?-?-?-?-?-?-?- JV- discussion t deniz about rpt section at 36-37 weeks. plan for steroids week of December 17 (35 weeks) wants delivered 12/28) 11/15/22 -?-?-?-?-?-?-?-?-?-?-?-?- 30w 5d 163 lb (+14 lb) 113/68 Negative -?-?-?-?-?-?-?-?-?-?-?-?- Negative 140 30 -?-?-?-?-?-?--?-?-?-?-?-?- LC- doing well. started checking BS, fasting under 95, all PP under 120. concerned with steroid use, reviewed benefits to lung maturity. 11/30/22 -?-?-?-?-?-?-?-?--?-?-?-?- 32w 6d 164 lb 2 oz (+15 lb 2 oz) 105/69 Negative -?-?-?-?-?-?-?-?-?-?-?-?- Negative 140 33 0 -?-?-?-?-?-?-?-?-?-?-?-?- KW-+FM. no vb/lo f. Not timing them but has them daily, have gotten harder over the last week, subsiding with rest. agrees to get steroids. BS controlled. KW-+FM. no vb/lof. Not timin g them but has them daily, have gotten harder over the last week, subsiding with rest. agrees to get steroids. BS controlled. Consulted with . 12/06/22 -?-?-?-?-?-?-?-?-?-?-?-?- 33w 5d 164 lb 8 oz (+15 lb 8 oz) 114/79 Negative -?-?-?-?-?-?-?-?-?-?-?-?- Negative 138 34 -?-?-?-?-?-?-?-?-?-?-?-?- LC-no lof/vb. go od fm. less [place] hick with rest and hydration. 12/13/22 -?-?-?-?-?-?-?-?-?-?-?-?- 34w 5d 165 lb (+16 lb) 120/77 Negative -?-?-?-?-?-?-?-?-?-?-?-?- Negative 133 35 -?-?-?-?-?-?-?-?-?-?-?-?- -NO Vb, LOF. G ood FM. Few BH. Had first steroid inj today in [place] and will return tomorrow 12/21/22 -?-?-?-?-?-?-?-?-?-?-?-?- 35w 6d 164 lb (+15 lb) 118/72 Negative -?-?-?-?-?-?-?-?-?-?-?-?- Negative 145 35 0 -?-?-?-?-?-?-?-?-?-?-?-?- JV- no lof, vagi nal bleeding, or dec fm rpt section next saturday. consent signed and gbs collected. ROS Constitutional Constitutional: Denies change in weight, fatigue, fever(s), headache(s), poor appetite or weakness Eyes Eyes: Denies blurry vision, change in vision, seeing flashes or spots in vision ENT HEENT: Denies dizziness, headache(s), loss taste/smell or sore throat Cardiovascular Cardiovascular: Denies chest pain, dizziness, dyspnea, irregular heart rhythm, leg edema, palpitations, rapid heart rate or vomiting Respiratory/Chest Respiratory/Chest: Denies chest tightness, cough, dyspnea or breast pain Gastrointestinal Gastrointestinal: Denies abdominal pain, anorexia, constipation, cramping, diarrhea, hemorrhoids, vomiting or weight changes Genitourinary Genitourinary: Denies dysuria, flank pain, genital lesions, genital pain, urinary frequency or urinary urgency Musculoskeletal Musculoskeletal: Denies back pain, difficulty walking, joint pain, limited range of motion, muscle cramps or numbness Integumentary Integumentary: Denies lesions or unusual bruising Neurologic Neurologic: Denies abnormal movements, abnormal speech, dizziness, numbness, seizure-like activity or syncope Psychiatric Psychiatric: Denies anxiety, behavioral changes, change in appetite, change in libido, cognitive impairment, confusion, depression, difficulty concentrating, hallucinations or suicidal thoughts Endocrine Endocrinology: Denies excessive sweating, polydipsia or polyuria Hematologic/Lymphatic Hematologic/Lymphatic: Denies easy bleeding, easy bruising or lymphadenopathy Allergic/Immunologic Allergic/Immunologic: Denies itchy eyes, lip swelling, seasonal rhinorrhea, rhinitis, throat swelling, tongue swelling, eczemia, wheezing or asthma Physical Exam Const alert, oriented x3, no apparent distress and healthy appearing General Appearance: cooperative; Negative for anxious HEENT normocephalic Face and Sinus: normal facial exam Eyes EOMs intact bilaterally and no scleral icterus General Eye: normal appearance of both eyes Neck full ROM and supple Lymph Lymphatic: no lymphadenopathy noted Chest Chest: abnormal inspection of the chest Resp normal respiratory effort Effort and Inspection: able to speak in complete sentences Cardio regular rate GI soft to palpation and non-tender Inspection: gravid Palpation: soft; Negative for tender external exam normal Amniotic Fluid: ROM+plus Back/Spine no CVA tenderness Extremity normal to inspection, full ROM and no clubbing, cyanosis or edema General Extremity: Negative for calf tenderness or edema Skin Lesions: no lesions Rashes: no rashes Psych mental status grossly normal Labs Labs Labs: Blood Type O POSITIVE Antibody Screen NEGATIVE Hct 35.0 % (37-47) L Hgb 12.1 g/dL (12.0-15.0) Obstetrics US Syphilis Total Ab Non-reactive Rubella IgG Antibody Reactive (Nonreactive) Hep Bs Antigen Non-Reactive (Nonreactive) Chlamydia DNA (JEREMIAH) Negative (Negative) Neisseria gonorrhoeae DNA (JEREMIAH) Negative (Negative) HIV 1&2 Antibody Non-Reactive (Nonreactive) Glucose 1 Hr 50 gm 176 mg/dL (70-140) H Rhogam given: No Assessment & Plan (1) Gestational diabetes mellitus (GDM) affecting : COMMENT: testing BS fasting & 2Hrs post meals, pt not interested in seeking nutrition appt. >80% values WNL. Diet control. (2) Abnormal glucose affecting : COMMENT: needs 3 hr gtt, failed (3) History of rupture of uterus: COMMENT: Agrees for steroids at 34 weeks plan 36-37 week delivery RLTCS scheduled for 12/28 @ 12 with JV (4) Previous delivery affecting : COMMENT: x 2 with previous uterine rupture. plan RLTCS, will have some visits in [facility] due to location (5) Thyroid condition: COMMENT: was taking a nutritional supplement. no longer on ordered TSH/t4 at 14 weeks. (6) Supervision of high risk , antepartum: COMMENT: , ALEAH 01/19/23, boy, Ladi Ford Harshad (7) : QUALIFIERS: Weeks of gestation: 35 weeks Qualified Code(s): Z3A.35 - 35 weeks gestation of COMMENT: GBS negative. NIPT low risk, discussed carrier testing PLAN: Plan After discussing the patient's diagnosis and treatment plan options. I have discussed with the patient the risks, benefits, and alternatives of the procedure which include but are not limited to risks of anesthesia, bleeding, infection, possible damage to bowel, bladder, or surrounding vasculature which could lead to additional surgery to evaluate any complications. Patient agrees to procedure and wishes to proceed. ACOG/uptodate references given for additional information regarding procedure. plan for ERAS repeat section 2 grams of ancef for prophylaxis pt is low risk for post surgical thrombosis
[2022-12-28] MEDS: Lactated Ringers 1,000 ML 500 ML IV (10:30)
[2022-12-28] MEDS: Lactated Ringers 1,000 ML 999 ML IV (10:35)
[2022-12-28] MEDS: Acetaminophen 500 MG Tablet 1000 MG PO ×3 (10:44→23:01)
[2022-12-28 10:59] LABS: Absolute Lymphocyte Count 2.31 X10^3/uL (0.83-4.51); Absolute Neutrophil Count 9.6 X10^3/uL (2.0-7.7); Basophil# 0.06 X10^3/uL; Basophil% 0.5 % (0-1); Eosinophil# 0.07 X10^3/uL; Eosinophils% 0.5 % (0-5); Hemoglobin 11.9 g/dL (12.0-15.0); Lymphocyte # 2.31 X10^3/ul (0.83-4.51); Lymphocyte % 17.5 % (19-41); Mean Corp Hgb Conc 33.1 g/dL (32-36); Mean Corpuscular Hgb 30.1 pg (27.0-32.0); Mean Corpuscular Volume 90.9 fL (81-99); Mean Platelet Vol. 10.8 fl (6.2-12.0); Monocyte# 0.87 X10^3/uL; Monocyte% 6.6 % (0-10); NRBC Flagged by Analyzer 0 % (0-5); Neutrophil # 9.61 X10^3/uL (2.7-7.7); Neutrophil % 72.6 % (47-70); Platelet Count 235 K/mm3 (150-450); RBC Distribution Width SD 42.1 fl (35.1-43.9); Red Blood Count 3.96 M/mm3 (4.2-5.4); White Blood Count 13.2 K/mm3 (4.4-11.0)
[2022-12-28] MEDS: Sodium Citrate/Citric Acid 30 ML UDC PO (11:01)
[2022-12-28] MEDS: Cefazolin 2 GM in 0.9% Normal Saline 100 ML IV (11:01)
--- NOTE | 2022-12-28 11:24 | OP.PCM_ITS ---
Assessment & Plan (1) Gestational diabetes mellitus (GDM) affecting : COMMENT: testing BS fasting & 2Hrs post meals, pt not interested in seeking nutrition appt. >80% values WNL. Diet control. (2) Abnormal glucose affecting : COMMENT: needs 3 hr gtt, failed (3) History of rupture of uterus: COMMENT: Agrees for steroids at 34 weeks plan 36-37 week delivery RLTCS scheduled for 12/28 @ with JV (4) Previous delivery affecting : COMMENT: x 2 with previous uterine rupture. plan RLTCS, will have some visits in [facility] due to location (5) Thyroid condition: COMMENT: was taking a nutritional supplement. no longer on ordered TSH/t4 at 14 weeks. (6) Supervision of high risk , antepartum: COMMENT: , ALEAH 01/19/23, FRANCOIS martins Abigail Harshad (7) : QUALIFIERS: Weeks of gestation: 35 weeks Qualified Code(s): Z3A.35 - 35 weeks gestation of COMMENT: GBS negative. 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 Spinal anesthesia was placed without difficulty. Corado catheter was placed. The patient was placed in the dorsal supine position with leftward tilt. Patient was prepped and draped in the normal sterile fashion. Pfannenstiel skin incision was made with the scalpel and carried through to the underlying layer of fascia with the scalpel. Fascia was nicked in the midline and the incision extended laterally. The rectus bellies were dissected off superiorly and inferiorly with out complication both sharply and bluntly. The peritoneum was entered digitally and also sharply with the metzenbaum scissors to avoid scar tissue on the lower uterine segment. The incision was stretched gently and a low transverse uterine incision was made with the scalpel on the uterus. The 's head was delivered atraumatically followed by the anterior and posterior shoulders without complication the rest of the infant delivered. The cord was clamped and cut and the was handed off to awaiting nurse. The placenta was delivered spontaneously immediately following and was noted to be intact and have a three-vessel cord. The uterus was exteriorized cleared of all clots and debris, and the incision was closed in a double layer closure using #1 vicryl and #1 Monocryl. The ovaries and fallopian tubes were noted to be within normal limits. The uterus was returned to the maternal abdomen and gutters were cleared of all clots and debris. The posterior uterus was noted to have bands of scar tissue and upon further inspection, powder burn bishop consistent with endometriosis located over the bladder reflection and adhesions on the anterior uterine wall. These findings were communicated with the patient intraoperatively. The peritoneum was closed w ith 3-0 Monocryl in a running fashion. Fascia was closed with 0 PDS in a running fashion. Subcutaneous tissue was copiously irrigated and the skin was closed with 3-0 Monocryl in a subcuticular fashion. Mepilex dressing was applied without complication. Patient was taken to recovery in stable condition. It was discussed with the patient that based on the clinical information obtained during this encounter, combined with her history, at this time I would recommend repeat for future deliveries if further pregnancies are desired. Amniotic Membrane Rupture Type: Artificial Amniotic Fluid Description: Clear Placental Delivery Description: Manual Removal Placenta Disposition: [facility] Cord Vessel Description: 3 Vessels Cord Entanglement: Around neck x 1, loose Nuchal Cord Compression: Without compression Infant A Gender: Male (1 minute): 8 (5 minute): 9 Delayed Cord Clamping: Yes Complications Risks of Surgery Discussed w/Patient: Bleeding, Anesthesia Risks, Infection, Need for Future C-Sections and Injury to surrounding structure(s) including bowel and bladder Complications: none Multi Select Codes Urinary/Genital Urinary/Genital CPT Codes: 47636 Delivery [facility]
[2022-12-28 11:36] LABS: Bedside Glucose 71 mg/dL (74-106)
[2022-12-28 11:39] LABS: Syphilis Antibodies Non-reactive
[2022-12-28] MEDS: Oxytocin 15 Units/NS 250ml 15 UNITS/250 ML IV.SOLN 83 UNITS IV (12:27)
[2022-12-28] MEDS: Ketorolac 30 MG/ML Syringe IV ×2 (13:17→19:08)
[2022-12-28 14:36] LABS: Bedside Glucose 92 mg/dL (74-106)
[2022-12-28] MEDS: Lactated Ringers 1,000 ML 100 ML IV (16:02)
[2022-12-29] MEDS: 0.9% Saline Lock 10 ML Syringe IV ×2 (01:06→06:38)
[2022-12-29] MEDS: Ketorolac 30 MG/ML Syringe IV ×2 (01:06→06:38)
[2022-12-29 04:58] VITALS: BP 91/55; PULSE 68; RESP 16; TEMP 36.3; O2SAT 98
[2022-12-29] MEDS: Acetaminophen 500 MG Tablet 1000 MG PO ×2 (05:04→11:35)
[2022-12-29 05:13] LABS: Hematocrit 33.1 % (37-47); Hemoglobin 10.9 g/dL (12.0-15.0); Mean Corp Hgb Conc 32.9 g/dL (32-36); Mean Corpuscular Hgb 30.3 pg (27.0-32.0); Mean Corpuscular Volume 91.9 fL (81-99); Mean Platelet Vol. 10.5 fl (6.2-12.0); Platelet Count 211 K/mm3 (150-450); RBC Distribution Width CV 13.1 % (11.6-14.6); RBC Distribution Width SD 42.9 fl (35.1-43.9)
[2022-12-29 05:26] LABS: Bedside Glucose 74 mg/dL (74-106)
[2022-12-29 08:00] VITALS: BP 117/68; PULSE 76; RESP 16; TEMP 36.3
--- NOTE | 2022-12-29 10:06 | PCM.PN.OB ---
Subjective Subjective Patient is laying in bed comfortably without complaints. She states that she slept on an off during the night. Lochia is mild and pain is minimal. Her baby was transported to [facility] and she would like to go see him Objective Data Objective Data Vital Signs: Vital Signs Temp Pulse Resp BP Pulse Ox O2 Del Method 97.4 F L 76 16 117/68 98 Room Air 12/29/22 08:00 12/29/22 08:00 12/29/22 08:00 12/29/22 08:00 12/29/22 04:58 12/29/22 04:58 Oxygen Delivery Method Room Air Weight: 164 lb 0.383 oz Body Mass Index (BMI) 29.0 Intake & Output: Intake and Output for Last 24 Hours 12/27/22 12/28/22 12/29/22 23:59 23:59 23:59 Intake Total 2790.00 / 2790.00 Output Total 3750 / 3750 825 / 825 Balance -960.00 / -960.00 -825 / -825 Lab / Micro Data 12/29/22 05:00 Labs: Laboratory Results - last 24 hr 12/28/22 10:35: WBC 13.2 H, RBC 3.96 L, Hgb 11.9 L, Hct 36.0 L, MCV 90.9, MCH 30.1, MCHC 33.1, RDW Std Deviation 42.1, RDW Coeff of Kelle 13.0, Plt Count 235, MPV 10.8, Immature Gran % (Auto) 2.300 H, Neut % (Auto) 72.6 H, Lymph % (Auto) 17.5 L, [place] % (Auto) 6.6, Eos % (Auto) 0.5, Baso % (Auto) 0.5, Absolute Neuts (auto) 9.6 H, Absolute Lymphs (auto) 2.31, Nucleated RBC % 0, Syphilis Total Ab Non-reactive, Blood Type O POSITIVE, Antibody Screen NEGATIVE 12/28/22 11:00: POC Glucose 71 L 12/28/22 14:09: POC Glucose 92 12/29/22 05:00: WBC 17.0 H, RBC 3.60 L, Hgb 10.9 L, Hct 33.1 L, MCV 91.9, MCH 30.3, MCHC 32.9, RDW Std Deviation 42.9, RDW Coeff of Kelle 13.1, Plt Count 211, MPV 10.5 12/29/22 05:02: POC Glucose 74 ROS Constitutional Constitutional: Reports systems reviewed and no addt'l complaints, except as documented Cardiovascular Cardiovascular: Denies chest pain, dizziness, dyspnea or irregular heart rhythm Respiratory/Chest Respiratory/Chest: Denies cough, pain on inspiration or shortness of breath at rest Gastrointestinal Gastrointestinal: Denies abdominal pain, nausea or vomiting Genitourinary Genitourinary: Denies burning urination Musculoskeletal Musculoskeletal: Denies muscle cramps, muscle spasms or muscle weakness Neurologic Neurologic: Denies confusion, dizziness, headache(s) or lack of coordination Psychiatric Psychiatric: Denies anxiety, behavioral changes or depression Physical Exam HEENT normocephalic Resp normal respiratory effort and normal air movement GI soft to palpation, non-tender and non-distended Rectal Exam: other Other Details: Incision is clean, dry, and intact no CVA tenderness Extremity normal to inspection General Extremity: edema bilateral (trace ) Assessment & Plan (1) Gestational diabetes mellitus (GDM) affecting : COMMENT: testing BS fasting & 2Hrs post meals, pt not interested in seeking nutrition appt. >80% values WNL. Diet control. (2) History of rupture of uterus: COMMENT: Agrees for steroids at 34 weeks plan 36-37 week delivery RLTCS scheduled for 12/28 @ 12 with JV (3) Status post section: PLAN: Plan s/p LTCS PPD # 1 1. routine post care 2.baby transported to [facility] 3. rh positive 4. rubella immune 5. disharge today unless baby is being transported back to [place] this morning.
--- NOTE | 2022-12-29 10:07 | DCINST_ITS ---
Discharge Instructions Diet Discharge Diet: No restrictions Activity Discharge Activity: May Not Drive (for 2 weeks or while taking narcotic pain medications.), May Shower and May Take a Tub Bath (in 7 days.) May resume sexual activity in: 4-6 weeks Weight Bearing Status: Full weight bearing Lifting Restrictions: 20 pounds Dressing / Incision Call your doctor if your incision/area has: Continuous Slow Oozing, Sudden Increased Bleeding, Increased Pain/ Swelling, Increased Redness and Foul Smelling Discharge Call your doctor if you observe: Fever of 101 or Higher and Using more than 1 pad per hour Suture Line Care: Avoid Pulling/Pushing and Avoid Pinching/Bending Cleanse incision/area with: Soap & Water and Keep Dressing Clean & Dry Follow Up Care Please Follow Up With: Indiana Amador DO When: Call [phone] to make an appointment for an incision check in 1-2 weeks. Test Results: Test results from this visit will be discussed in further detail at your follow- up appointment, if applicable. Discharge Plan Admission Admit Date/Time: 12/28/22 10:00 Primary Reason for Your Visit: section Attending Provider: Indiana Amador Primary Care Provider: Catherine Copeland NP Discharge Orders/Prescriptions Prescriptions: New ibuprofen 800 mg tablet 800 mg PO Q8H PRN (Reason: pain) Qty: 30 0RF No Action PNV-[place] 28-1-300 mg capsule 2 cap PO DAILY (DME) blood-glucose meter Misc See Rx Instructions .MEDSUPPLY Qty: 1 0RF Rx Instructions: As directed- Test fasting and 2 hours after meals (DME) lancets Misc See Rx Instructions .MEDSUPPLY Qty: 100 6RF Rx Instructions: As directed- fasting and 2 Hours post meals (DME) Blood Glucose Test Strip See Rx Instructions .Route Qty: 100 6RF Rx Instructions: As directed- fasting and 2 hours post meals Referrals / Follow Up: Catherine Copeland NP, [facility] [Primary Care Provider] - Disposition Disposition (needs filled in before D/C Order can be placed): Home, Self Care
[2022-12-29] MEDS: Naproxen 500 MG Tablet PO (11:35)
[2022-12-29] MEDS: Senna/Docusate Sodium 1 Tablet PO (11:36)
[2022-12-29 14:00] VITALS: BP 101/67; PULSE 79; RESP 16; TEMP 36.4
== END 2022-12-29 17:30 | disposition home or self-care (01) | DRG 786 ==
PROVIDERS: Admitting Provider Obstetrics & Gynecology; PCP Nurse Practitioner Family; Visit Provider Obstetrics & Gynecology
PROC: 10D00Z1 Extraction of Products of Conception, Low, Open Approach (ICD-10-PCS; CPT 59514; principal; 2022-12-28 11:45)
DX: O34.211 Maternal care for low transverse scar from previous cesarean delivery (principal); O60.14X0 Preterm labor third trimester with preterm delivery third trimester, not applicable or unspecified; O24.420 Gestational diabetes mellitus in childbirth, diet controlled; O69.2XX0 Labor and delivery complicated by other cord entanglement, with compression, not applicable or unspecified; Z37.0 Single live birth; Z3A.36 36 weeks gestation of pregnancy; Z87.828 Personal history of other (healed) physical injury and trauma
CPT/HCPCS: 59025; 59050; 82962; 85025; 85027; 86780; 86850; 86900; 86901; 99221; J7120; A4216; G0378; J2405